=== PATIENT | female | born 1950 | race American Indian/Alaskan Native ===

== ENCOUNTER 2020-06-15 10:59 | Outpatient (CLI) | payer MEDICARE ==
--- NOTE | 2020-06-15 13:29 | Vascular Lab Report ---
Abdominal vascular Ultrasound HISTORY: celiac artery compression syndrome. Abdominal pain for the past 6 months TECHNIQUE: Grayscale and color imaging performed. COMPARISON: None FINDINGS: Proximal aorta is 2.9 cm in maximal dimension which is technically ectatic; however, there is normal distal tapering and velocities appear within normal limits. Multifocal atherosclerotic dise ase is present. The celiac axis and SMA are widely patent with no acute angle identified. There are elevated peak sys tolic velocities in the celiac axis measuring 261 cm/s at the proximal segment and 254 cm/s at the mi d segment. Similar finding is seen in the proximal SMA with elevated peak systolic velocity of 236 cm /s. There is somewhat turbulent flow noted as well. IMPRESSION: 1. Elevated peak systolic velocities in the celiac axis and SMA but otherwise patent vessels as above . 2. Technically ectatic proximal aorta measuring 2.9 cm but there is normal distal tapering with no fr ank aneurysmal dilatation. Multifocal atherosclerotic disease is noted. Signer Name: Amauri Orozco MD Signed: 06/15/2020 1:25 PM Workstation Name: [id number]
== END 2020-06-15 11:00 | disposition home or self-care (01) ==
LOC: VAS 10:59
PROVIDERS: ATTEND Surgery Vascular Surgery
DX: I77.4 Celiac artery compression syndrome (principal); I70.8 Atherosclerosis of other arteries
CPT/HCPCS: 93979